=== PATIENT | male | born 1970 | race African-American/Black ===

== ENCOUNTER 2017-04-22 11:27 | Emergency (ER) | payer MEDICAID ==
[~2017-04-22] VITALS: Ht 177.8 cm; Wt 130.0 kg
[~2017-04-22 11:27] MED LIST: KEPP500 PO
[2017-04-22] MEDS ORDERED: DIVAL250 PO (11:30)
[2017-04-22] MEDS ORDERED: LEVETIRACETAM 500MG TABLET PO ONE (11:45)
[2017-04-22 12:09] LABS: BASOPHILS % 0.7 % (0.0-2.0); EOSINOPHILS % 3.5 % (0.0-5.0); HEMATOCRIT. 39.2 % (42.0-52.0); HEMOGLOBIN. 13.4 g/dL (14.0-18.0); LYMPHOCYTES % 25.5 % (20.0-50.0); MEAN CORPUSCULAR HEMOGLOBIN 35.4 pg (28.0-32.0); MEAN CORPUSCULAR VOLUME 103.4 fL (80.0-94.0); MEAN PLATELET VOLUME 7.7 fl (7.4-10.4); MONOCYTES % 8.4 % (2.0-8.0); NEUTROPHILS % 61.9 % (40.0-76.0); PLATELET 201 x1000/uL (130-400); RED BLOOD CELL COUNT 3.79 mill/uL (4.7-6.1); RED CELL DISTRIBUTION WIDTH 13.8 % (11.6-14.6)
[2017-04-22 12:16] LABS: CHLORIDE 105 mEq/L (98-107)
[2017-04-22 12:24] LABS: CARBON DIOXIDE 24 mEq/L (21-32)
[2017-04-22] MEDS ORDERED: VALPROIC ACID 250MG CAPSULE PO ONE (13:00)
[2017-04-22 13:23] VITALS: BP 114/72
== END 2017-04-22 13:50 | disposition home or self-care (01) ==
LOC: ER 11:36
DX: G40.909 Epilepsy, unspecified, not intractable, without status epilepticus (principal); L51.1 Stevens-Johnson syndrome; Z88.8 Allergy status to other drugs, medicaments and biological substances
CPT/HCPCS: 36415; 80053; 80165; 85025; 99284; Z7610

== ENCOUNTER 2017-12-10 10:45 | Emergency (ER) | payer MEDICAID ==
[~2017-12-10] VITALS: Ht 160 cm; Wt 91.0 kg
[~2017-12-10 10:45] MED LIST changes: +DIVAL250 PO
[2017-12-10 15:10] VITALS: BP 124/74
== END 2017-12-10 15:11 | disposition home or self-care (01) ==
LOC: ER 12:05
DX: S01.01XD Laceration without foreign body of scalp, subsequent encounter (principal); R56.9 Unspecified convulsions; X58.XXXD Exposure to other specified factors, subsequent encounter; Y93.89 Activity, other specified; Y99.8 Other external cause status; Y92.89 Other specified places as the place of occurrence of the external cause; Z88.8 Allergy status to other drugs, medicaments and biological substances
CPT/HCPCS: 99281

== ENCOUNTER 2018-10-23 10:45 | Emergency (ER) | payer MEDICAID ==
[~2018-10-23] VITALS: Ht 170.2 cm; Wt 100.0 kg
[2018-10-23 10:47] VITALS: BP 151/94
== END 2018-10-23 12:47 | disposition left against medical advice (07) ==
LOC: ER 10:45
DX: R56.9 Unspecified convulsions (principal); Z53.21 Procedure and treatment not carried out due to patient leaving prior to being seen by health care provider

== ENCOUNTER 2019-08-22 17:20 | Emergency (ER) | payer MEDICAID, OTHER ==
[~2019-08-22] VITALS: Ht 167.6 cm; Wt 88.0 kg
[2019-08-22 18:46] LABS: BASOPHILS % 0.7 % (0.0-2.0); EOSINOPHILS % 1.1 % (0.0-5.0); HEMATOCRIT. 40.8 % (42.0-52.0); HEMOGLOBIN. 13.9 g/dL (14.0-18.0); LYMPHOCYTES % 14.5 % (20.0-50.0); MEAN CORPUSCULAR HEMOGLOBIN 35.5 pg (28.0-32.0); MEAN CORPUSCULAR VOLUME 104.5 fL (80.0-94.0); MONOCYTES % 6.6 % (2.0-8.0); NEUTROPHILS % 77.1 % (40.0-76.0); PLATELET 225 x1000/uL (130-400); RED BLOOD CELL COUNT 3.91 mill/uL (4.7-6.1); RED CELL DISTRIBUTION WIDTH 12.9 % (11.6-14.6)
[2019-08-22 18:51] LABS: CHLORIDE 105 mEq/L (98-107)
[2019-08-22 18:55] LABS: ETHANOL BLOOD < 10 mg/dL
[2019-08-22] MEDS ORDERED: CEFTRIAXONE SODIUM 1 G/VIAL IM ONE (20:30)
[2019-08-22 20:45] LABS: CLARITY URINE CLEAR (CLEAR); COLOR URINE YELLOW (YELLOW); KETONES URINE NEGATIVE (NEGATIVE); LEUKOCYTE ESTERASE URINE NEGATIVE (NEGATIVE); NITRITE URINE NEGATIVE (NEGATIVE); OCCULT BLOOD URINE 1+ (NEGATIVE); PROTEIN URINE 1+ (NEGATIVE); SPECIFIC GRAVITY URINE 1.017 (1.005-1.030); UROBILINOGEN URINE 0.2 E.U./dL (0.2-1.0)
[2019-08-22 20:51] VITALS: BP 146/80
[2019-08-22 21:44] LABS: *AMPHETAMINES SCREEN URINE NEGATIVE (NEGATIVE); *BARBITURATES SCREEN URINE NEGATIVE (NEGATIVE); *BENZODIAZEPINES SCREEN URINE NEGATIVE (NEGATIVE); *COCAINE SCREEN URINE NEGATIVE (NEGATIVE); METHADONE URINE SCREEN NEGATIVE (NEGATIVE); OPIATES URINE SCREEN NEGATIVE (NEGATIVE)
[2019-08-22 21:45] LABS: CANNABINOID URINE SCREEN PRESUMTIVE POSITIVE (NEGATIVE); PHENCYCLIDINE URINE SCREEN NEGATIVE (NEGATIVE)
== END 2019-08-22 21:51 | disposition home or self-care (01) ==
LOC: ER 17:20
DX: R41.0 Disorientation, unspecified (principal); R53.1 Weakness; R56.9 Unspecified convulsions; F12.10 Cannabis abuse, uncomplicated; Z88.2 Allergy status to sulfonamides
CPT/HCPCS: 36415; 71045; 80053; 80305; 80320; 81003; 85025; 93005; 96372; 99284; J0696; G0480

== ENCOUNTER 2024-12-09 13:38 | Emergency (ER) | payer MEDICAID ==
[~2024-12-09] VITALS: Ht 180.3 cm; Wt 85.0 kg
[2024-12-09 13:39] VITALS: O2SAT 99
[2024-12-09] MEDS ORDERED: DIVA250T4 MT (13:42)
[2024-12-09] MEDS: LEVETIRACETAM 1000MG PREMIX 100 ML IV ONE (14:25)
[2024-12-09 14:26] LABS: BASOPHILS % 0.5 % (0.0-2.0); EOSINOPHILS % 2.7 % (0.0-5.0); HEMATOCRIT. 43.8 % (42.0-52.0); HEMOGLOBIN. 14.2 g/dL (14.0-18.0); LYMPHOCYTES % 21.7 % (20.0-50.0); MEAN CORPUSCULAR HEMOGLOBIN 36.1 pg (28.0-32.0); MEAN CORPUSCULAR HGB CONC 32.5 g/dL (31.0-37.0); MEAN CORPUSCULAR VOLUME 111.2 fL (80.0-94.0); MEAN PLATELET VOLUME 7.5 fl (7.4-10.4); MONOCYTES % 6.4 % (2.0-8.0); NEUTROPHILS % 68.7 % (40.0-76.0); PLATELET 286 x1000/uL (130-400); RED BLOOD CELL COUNT 3.93 mill/uL (4.7-6.1); RED CELL DISTRIBUTION WIDTH 14.4 % (11.6-14.6); WHITE BLOOD COUNT 13.8 x1000/uL (4.5-11.0)
[2024-12-09 14:34] LABS: CHLORIDE 103 mEq/L (98-107); SODIUM 136 mEq/L (136-145)
[2024-12-09 14:35] LABS: CALCIUM 9.6 mg/dL (8.7-10.4); CARBON DIOXIDE 20 mEq/L (21-32)
[2024-12-09 14:36] LABS: POTASSIUM 6.5 mEq/L (3.5-5.1)
[2024-12-09 14:40] LABS: GLUCOSE 128 mg/dL (70-105); UREA NITROGEN BLOOD 9 mg/dL (9-23)
[2024-12-09 14:41] LABS: ADD RBC MORPHOLOGY YES; DIFFERENTIAL COMMENT 1
[2024-12-09 14:42] LABS: ALANINE AMINOTRANSFERASE 15 IU/L (10-49); ALBUMIN 4.3 g/dL (3.2-4.8); ASPARTATE AMINOTRANSFERASE 53 IU/L (<34); BILIRUBIN TOTAL 0.5 mg/dL (0.1-1.0); PROTEIN TOTAL 8.4 g/dL (6.0-8.3)
[2024-12-09] MEDS ORDERED: CALCIUM CHLORIDE 1,000 MG in DEXT 5% WATER 100 ML IV ONE (14:45)
[2024-12-09] MEDS ORDERED: FUROSEMIDE 100MG/10ML VIAL IV ONE (14:45)
[2024-12-09] MEDS: INSULIN REGULAR (HUMULIN R) 1000UNITS/10ML VIAL IV ONE (15:09)
[2024-12-09] MEDS: CALCIUM GLUCONATE 1GM PREMIX 50 ML IV NR (15:10)
[2024-12-09] MEDS: FUROSEMIDE 40MG/4ML VIAL IV NR (15:10)
[2024-12-09] MEDS: DEXTROSE 50% WATER 50ML SYRINGE IV ONE (15:10)
[2024-12-09 15:26] LABS: PLATELET ESTIMATE NORMAL
[2024-12-09] MEDS ORDERED: LORAZEPAM 2MG/ML INJ IV ONE (18:45)
[2024-12-09] MEDS: LORAZEPAM 2MG/ML INJ IV NR (18:52)
[2024-12-09 20:25] VITALS: BP 123/73; PULSE 118; RESP 22; TEMP 37.2; O2SAT 99
== END 2024-12-09 20:48 | disposition left against medical advice (07) ==
LOC: ER 13:38 → EDBEDREQTM 15:27 → EDBEDREQ 15:27 → ER 20:48
DX: G40.909 Epilepsy, unspecified, not intractable, without status epilepticus (principal); F12.90 Cannabis use, unspecified, uncomplicated; E87.5 Hyperkalemia; Z79.899 Other long term (current) drug therapy
CPT/HCPCS: 80053; 80320; 85025; 36415; 70450; 93005; 96365; 96375; 99291; J1953; J3490; J0610; J1940; J1815; J2060; J7060; Z7610; G0480